=== PATIENT | male | born 1995 | race Two or more races ===

== ENCOUNTER 2016-07-26 18:30 | Emergency (ER) | payer MEDICAID ==
[~2016-07-26] VITALS: Ht 175.3 cm; Wt 79.4 kg
[2016-07-26] MEDS ORDERED: AMOXICILLIN500 MG ORAL (19:02)
[2016-07-26] MEDS ORDERED: ROBITUSSIN100 MG/52 ORAL (19:02)
[2016-07-26 19:07] VITALS: BP 128/70
--- NOTE | 2016-07-26 19:45 | Emergency Room Report ---
History of Present Illness General Chief Complaint: Upper Respiratory Illness Source: Patient Present Illness [facility] The patient presented for cough and difficulty breathing for several days. Patient reported having increased productive cough. He reports having some sore throat sensation. He denies any fever. He reported having yellow productive sputum. He had a increased cough. He denied any fever or weakness. Allergies: Coded Allergies: No Known Allergies (Unverified , 07/26/16) Patient History Past Medical History: see triage record Reviewed Nursing Documentation: PMH: Agreed, PSxH: Agreed Nursing Documentation-PMH Past Medical History: No Stated History Review of Systems All Other Systems: negative except mentioned in HPI Physical Exam Vital Signs Date Time Temp Pulse Resp B/P Pulse Ox O2 Delivery O2 Flow Rate FiO2 07/26/16 18:52 98.1 110 16 133/77 98 Room Air General Appearance: well appearing, no apparent distress Head: normocephalic, atraumatic ENT: hearing grossly normal, normal voice, other - uvula swelling and enlargement Neck: full range of motion, supple Respiratory: no respiratory distress, speaking full sentences Cardiovascular #1: normal peripheral pulses, regular rate, rhythm Gastrointestinal: normal bowel sounds, non tender, soft Musculoskeletal: normal inspection, back normal, digits/nails normal, no calf tenderness Neurologic: normal inspection, alert, oriented x3, responsive, forest ranger III-XII nml as tested, normal gait Psychiatric: normal inspection, mood/affect normal Skin: no rash Medical Decision Making Diagnostic Impression: Primary Impression: Uvulitis ER Course Patient presented for sore throat.Differential diagnosis included but was not limited to meningitis, exudative tonsillitis, retropharyngeal abscess, epiglottitis, strep pharyngitis. Patient's benign exam and does not appear to require any further imaging or laboratory testing at this time. The patient presented uvulitis. The patient started on oral antibiotics . The patient is advised to follow up with primary care doctor in 1-2 days. Patient is advised to return if any worsening condition or if any changes in status that are concerning. Last Vital Signs Date Time Temp Pulse Resp B/P Pulse Ox O2 Delivery O2 Flow Rate FiO2 07/26/16 19:07 98.0 108 14 128/70 100 Room Air Status: improved Disposition: HOME, SELF-CARE Condition: Stable Scripts Guaifenesin (Guaifenesin) 100 Mg/5 Ml Liquid 200 MG ORAL Q6H, #120 ML 0 Refills Prov: Darwin Siddiqui 07/26/16 Amoxicillin* (AMOXIL*) 500 Mg Capsule 500 MG ORAL THREE TIMES A DAY, #21 CAP Prov: Darwin Siddiqui 07/26/16 Referrals: NOT CHOSEN [facility],REFERRING (PCP) Departure Forms: Return to School Return to School On: Jul 30, 2016 School Release Restrictions: None Patient Instructions: Darwin Morrell Jul 26, 2016 19:45
== END 2016-07-26 19:09 | disposition home or self-care (01) ==
LOC: EMR 19:06
DX: K12.2 Cellulitis and abscess of mouth (principal)
CPT/HCPCS: 99284

== ENCOUNTER 2016-11-25 22:14 | Emergency (ER) | payer MEDICAID ==
[~2016-11-25] VITALS: Ht 175.3 cm; Wt 77.1 kg
[~2016-11-25 22:14] MED LIST: AMOXICILLIN500 MG ORAL; ROBITUSSIN100 MG/52 ORAL
[2016-11-25] MEDS ORDERED: TdaP Vaccine 0.5ml Syr IM ONE (22:45)
--- NOTE | 2016-11-25 23:06 | Emergency Room Report ---
History of Present Illness General Chief Complaint: Laceration Source: Patient Present Illness HPI Is a 21-year-old male who is right-hand dominant. He presents with a laceration to the left hand. Onset about an hour ago. He was washing dishes and there was a broken cup stabbed him in the left palm. Bleeding but minimal pain. No other plane. No other injury. Allergies: Coded Allergies: No Known Allergies (Unverified , 07/26/16) Patient History Past Medical History: see triage record, old chart reviewed Past Surgical History: none Pertinent Family History: none Social History: Denies: drug use Immunizations: other Reviewed Nursing Documentation: PMH: Agreed, PSxH: Agreed Nursing Documentation-PMH Past Medical History: No Stated History Review of Systems Eye: Denies: blurred vision, eye pain ENT: Denies: ear pain, nose congestion, throat swelling Respiratory: Denies: cough, shortness of breath Cardiovascular: Denies: chest pain, palpitations Gastrointestinal: Denies: abdominal pain, diarrhea, nausea, vomiting Musculoskeletal: Denies: back pain, joint pain Skin: Denies: rash Neurological: Denies: headache, numbness Endocrine: Denies: increased thirst, increased urine Hematologic/Lymphatic: Denies: easy bruising All Other Systems: negative except mentioned in HPI Physical Exam Vital Signs Date Time Temp Pulse Resp B/P Pulse Ox O2 Delivery O2 Flow Rate FiO2 11/25/16 22:20 99.0 76 20 131/74 100 Room Air vitals normal Sp02 EP Interpretation: reviewed, normal General Appearance: well appearing, no apparent distress, alert Head: normocephalic, atraumatic Eyes: bilateral eye EOMI, bilateral eye PERRL ENT: hearing grossly normal, normal pharynx Neck: full range of motion, supple, no meningismus Respiratory: chest non-tender, lungs clear, normal breath sounds Cardiovascular #1: regular rate, rhythm, no murmur Gastrointestinal: normal bowel sounds, non tender, no mass, no organomegaly, no bruit, non-distended Musculoskeletal: back normal, gait/station normal, normal range of motion, other - 1 cm lac to base of left thumb. FROM. NVI Psychiatric: mood/affect normal Skin: warm/dry Procedures Laceration/Wound Repair Laceration/Wound Repair : Consent: Verbal Wound Location: upper extremity Wound's Depth, Shape: irregular Wound Length (cm): 1 Wound Explored: clean Irrigated w/ Saline (ccs): 1000 Anesthesia: 1% Lidocaine Volume Anesthetic (ccs): 2 Wound Repaired With: sutures Suture Size/Type: 6:0, proline Number of Sutures: 2 Patient Tolerated: Well Complications: None Medical Decision Making Diagnostic Impression: Primary Impression: Laceration ER Course Patient with laceration to the left hand at the base of the thumb. No foreign body. No tendon laceration. Low risk for infection. Last Vital Signs Date Time Temp Pulse Resp B/P Pulse Ox O2 Delivery O2 Flow Rate FiO2 11/25/16 22:20 99.0 76 20 131/74 100 Room Air Status: improved Disposition: HOME, SELF-CARE Condition: Stable [facility]errals: [facility],REFERRING (PCP) Patient Instructions: Laceration Care, Adult Additional Instructions: Follow up with your doctor in 7 days. Sutures out in 7-10 days. Return if worse. DAVINA SHRESTHA M.D. Nov 25, 2016 23:06
[2016-11-25] MEDS ORDERED: Bacitracin Oint UD TOPIC ONE (23:15)
[2016-11-25 23:17] VITALS: BP 120/88
== END 2016-11-25 23:17 | disposition home or self-care (01) ==
LOC: EMR 22:35
DX: S61.012A Laceration without foreign body of left thumb without damage to nail, initial encounter (principal); Z23 Encounter for immunization; W26.9XXA Contact with unspecified sharp object(s), initial encounter; Y93.G1 Activity, food preparation and clean up; Y92.9 Unspecified place or not applicable
CPT/HCPCS: 12001; 90471; 90715; 96372; 99284; Z7502